=== PATIENT | female | born 1970 | race Caucasian/White ===

== ENCOUNTER 2016-06-26 12:13 | Emergency (ER) | payer BC ==
[~2016-06-26] VITALS: Ht 154.9 cm; Wt 94.4 kg
[2016-06-26 13:35] LABS: HEMATOCRIT 43.3 % (36.0-46.0); MCH 27.6 PG (29.0-34.0); MCV 83.4 FL (83-99); MEAN PLAT.VOLUME 8.1 uM^3 (9.5-12.4); PLATELET COUNT 304 K/uL (156-360); RBC DIS.WIDTH-CV 12.9 % (11.8-14.6); RBC DIS.WIDTH-SD 39.4 % (39-53); RED BLOOD COUNT 5.19 M/uL (3.80-5.20); WHITE BLOOD COUNT 9.5 K/uL (4.1-10.2)
[2016-06-26 13:50] LABS: CHLORIDE 103 mEq/L (99-109); POTASSIUM 4.4 mEq/L (3.7-5.4); SODIUM 139 mEq/L (136-147)
[2016-06-26 13:53] LABS: GLUCOSE 105 mg/dL (70-99)
[2016-06-26 13:54] LABS: ANION GAP 10 MEQ/L (2-14); TOTAL BILIRUBIN 0.4 mg/dL (0.0-1.0)
[2016-06-26 13:56] LABS: ALKALINE PHOSPHATASE 124 IU/L (3-129); GFR ESTIMATE (CALCULATED) > 59 mL/min/
[2016-06-26 13:57] LABS: UREA NITROGEN (BUN) 11 mg/dL (9-23)
[2016-06-26 14:09] LABS: QUANTITATIVE HCG < 4.0 MIU/ML
[2016-06-26 14:50] LABS: ADD MIUA? NO; BILIRUBIN NEGATIVE; BLOOD NEGATIVE; COLOR YELLOW ((YELLOW)); GLUCOSE (STRIP) NEGATIVE; KETONES 20; LEUKOCYTES NEGATIVE; NITRITE NEGATIVE; PROTEIN (STRIP) NEGATIVE; SPECIFIC GRAVITY 1.014 (1.000-1.030); UCUL ADDED? NO; UROBILINOGEN 0.2 MG/DL (0.2-1.0)
[2016-06-26 16:00] LABS: LIPASE 7 U/L (1.0-51.0)
[2016-06-26] MEDS ORDERED: CARAFATE1 GM PO (16:13)
[2016-06-26] MEDS ORDERED: PEPCID20 MG PO (16:13)
[2016-06-26 16:26] VITALS: BP 126/71
== END 2016-06-26 16:27 | disposition home or self-care (01) ==
LOC: EME 12:13
DX: R10.13 Epigastric pain (principal); M54.9 Dorsalgia, unspecified; R11.2 Nausea with vomiting, unspecified; R06.02 Shortness of breath; R03.0 Elevated blood-pressure reading, without diagnosis of hypertension
CPT/HCPCS: 80053; 81003; 83690; 84702; 85027; 93005; 99281; 99284

== ENCOUNTER 2016-10-30 08:05 | Day surgery (SDC) | payer BC ==
[~2016-10-30] VITALS: Ht 154.9 cm; Wt 90.7 kg
[~2016-10-30 08:05] MED LIST: ASTEPRO 0.15%30 ML BOTH NARES; BENTYL10 MG PO; CARAFATE1 GM PO; DAILY VALUE1 EACH PO; DIOVAN HCT 31 TABLE1 PO; OMEPRAZOLE40 M1 PO; PEPCID20 MG PO
[2016-10-30 08:53] VITALS: BP 112/84
[2016-10-30] MEDS ORDERED: NORCO 5/3251 TABLET PO (11:09)
[2016-10-30 11:48] VITALS: BP 109/57
[2016-10-30 12:38] VITALS: BP 123/73
[2016-10-31 11:06] LABS: INTERNAL CONTROL VALID? YES
== END 2016-10-30 12:40 | disposition home or self-care (01) ==
LOC: SDC 08:05
PROVIDERS: Surgery
PROC: 0FT44ZZ Resection of Gallbladder, Percutaneous Endoscopic Approach (ICD-10-PCS; principal; 2016-10-30)
DX: K80.10 Calculus of gallbladder with chronic cholecystitis without obstruction (principal); J45.909 Unspecified asthma, uncomplicated; I10 Essential (primary) hypertension; E78.00 Pure hypercholesterolemia, unspecified; E66.9 Obesity, unspecified; Z68.38 Body mass index [BMI] 38.0-38.9, adult; K21.9 Gastro-esophageal reflux disease without esophagitis; Z83.3 Family history of diabetes mellitus; Z82.5 Family history of asthma and other chronic lower respiratory diseases; Z83.79 Family history of other diseases of the digestive system
CPT/HCPCS: 84703; 88304; J0131; J0690; J1100; J1885; J2250; J2405; J2710; J3010